=== PATIENT | male | born 1990 | race African-American/Black ===

== ENCOUNTER 2023-08-02 09:03 | Emergency (ER) | payer MEDICAID, OTHER ==
[~2023-08-02] VITALS: Ht 165.1 cm; Wt 114.0 kg
[2023-08-02 09:31] VITALS: O2SAT 99
[2023-08-02] MEDS ORDERED: FLUORESCEIN SODIUM 1MG/STRIP BOTHEYE ONE (10:15)
[2023-08-02] MEDS ORDERED: TETRACAINE 0.5% OPHTH DROPS 4ML BOTHEYE ONE (10:15)
[2023-08-02] MEDS ORDERED: POLY10DR RIGHTEYE (10:31)
[2023-08-02 11:02] VITALS: BP 137/84; PULSE 86; RESP 16; TEMP 98.7
== END 2023-08-02 11:04 | disposition home or self-care (01) ==
LOC: ER 09:03
DX: S00.201A Unspecified superficial injury of right eyelid and periocular area, initial encounter (principal); X58.XXXA Exposure to other specified factors, initial encounter; Y93.89 Activity, other specified; Y92.89 Other specified places as the place of occurrence of the external cause; Y99.8 Other external cause status
CPT/HCPCS: 99283